=== PATIENT | male | born 1960 | race Caucasian/White ===

== ENCOUNTER 2016-09-13 17:22 | Inpatient (IN) | payer SELFPAY ==
[~2016-09-13] VITALS: Ht 172.7 cm; Wt 88.0 kg
--- NOTE | ~2016-09-13 | CON ---
[place], [place] REPORT OF CONSULTATION NAME[id number] UNIT #: [id number] ROOM: [facility] DOCTOR: JOZEF VASQUEZ DO BIRTHDATE: [birth year] DOS: 09/14/2016 REASON FOR CONSULTATION: Acute kidney injury and hyperkalemia. HISTORY OF PRESENT ILLNESS: The patient is a pleasant 56-year-old male with prior history of hypertension, gastric ulcers, sent to this institution yesterday from his PCP's office after an EKG performed revealed a right bundle branch block. He had been feeling weak as well as lightheaded for several days and this was the reason for his visit to his PCP. In the Emergency Room, he was noted to be hyperkalemic with potassium initially reported at 6.4 with a recheck value of 7.0; of note, neither the specimen was hemolyzed. His electrolytes were otherwise unremarkable. He was found to be in acute kidney injury as well as a creatinine of 2.20 with a BUN of 92 and on recheck, the BUN and creatinine were 91 and 2.06 respectively. White count was normal at 8.2 with hemoglobin of 14.5. He was aggressively treated in the Emergency Room with an amp of D50 and 2 units of IV regular insulin, also given Lasix in the Emergency Room as well and calcium gluconate and ordered 15 grams of Kayexalate. Additionally, IV fluids were administered 1 liter and he was given an albuterol treatment. He was then admitted to the ICU where additional 30 grams of Kayexalate was administered approximately 1 hour later. He was placed on maintenance IV fluids in the form of normal saline 125 mL an hour. I was then contacted by the staff in the ICU. Repeat labs were ordered. His potassium had subsequently improved to 6.4. His creatinine improved to 1.81. He was given additional dose of D50 and insulin IV. Otherwise, no additional orders were given to the ICU staff and as of this morning, his potassium has improved to 5.6. His creatinine has improved to 1.41. On recheck this morning, his chemistries are all otherwise unremarkable. Repeat hemoglobin and hematocrit from today revealed values of 13.5 and 39.1 respectively with a normal white count of 7.6. He did have urine studies obtained last evening as well after he received IV Lasix. He showed a specific gravity of less than 1.005. UA was otherwise unremarkable with urine chemistry showing a sodium of 118, creatinine of 21.7, and urea nitrogen of 334 for a fraction excretion of sodium that was greater than 1 and fractional excretion of urea that was equivocal at 36%. Renal ultrasound has been ordered, results of which are still pending. He had been on a longstanding and stable outpatient dose of lisinopril 20 mg daily. This was placed on hold upon admission. He notes since being admitted, he is feeling considerably better. 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 He states that he worked at his new job for only 3 days, Tuesday through Tuesday and subsequently quit as the labor was very intense and he was sweating profusely and he was feeling extremely poorly and was eating very poorly while performing his new job. He states, he also noted that he was urinating less frequently, typically only once a day. He then took a new job 2 days prior to admission on Tuesday, 09/10 while the labor was not as heavy as his previous job, he states that he still sweat quite profusely and while he began urinating more normally following the discontinuation of his first job, his appetite remained poor. He was still feeling quite weak and lightheaded. He states he ate a number of bananas on Tuesday thinking that his potassium may be low and that is why he was feeling poorly in hopes that this will help him feel better. Unfortunately, did not. Other than the poor appetite, he denied any other GI complaints leading up to this admission and states that he began [place], [place] REPORT OF CONSULTATION NAME: LORENAERYNJOSIE UNIT #: [id number] ROOM: [facility] DOCTOR: JOZEF VASQUEZ DO BIRTHDATE: [birth year] voiding what he considered to be in a normal fashion for himself as already described beginning on or Tuesday. He specifically denies any symptoms of colic or passage of calculi, hematuria or froth in his urine. He denies any abdominal pain or distention. He has not been experiencing any orthopnea, PND, dyspnea, or edema, cough, hemoptysis or any skin rashes. He denies use of NSAIDs and lisinopril. He has not been exposed to any other potential nephrotoxic agents. He has been afebrile and hemodynamically stable since being admitted. He is unaware of any preceding history of kidney disease. Unfortunately, we only have labs available through [facility] for this admission. States he does get lab work done routinely through his PCP's office, the most recent perhaps 6 months ago, has not been unaware of any issues with his kidneys or his potassium in the past. As potassium supplement and does not use a substitute either. PAST MEDICAL HISTORY: See above. ALLERGIES: No known drug allergies. CURRENT MEDICATIONS: Prilosec 20 mg p.o. every day, normal saline IV 125 mL an hour. SOCIAL HISTORY: He resides at home. FAMILY HISTORY: Noncontributory. REVIEW OF SYSTEMS: See HPI. Full 10 systems performed, and otherwise unremarkable. PHYSICAL EXAMINATION: VITAL SIGNS: Blood pressure is 104/68, pulse is 71, respirations 18, temperature is 97.9 degrees Fahrenheit. GENERAL APPEARANCE: A well-appearing male, awake, alert and oriented x 3, currently in no apparent distress. HEENT: Head is normocephalic. Eyes, conjunctivae pink. Oral mucous pink and moist. Upper and lower full dentures are noted. NECK: There is no carotid bruit, thyromegaly, adenopathy or JVD appreciated. LUNGS: Clear to auscultation and percussion. HEART: Regular, without S4, S3 gallop, rub, murmur or heave noted. ABDOMEN: Soft, positive bowel sounds x 4, nontender, without CVA tenderness noted. No rebound, guarding or rigidity noted. No abdominal or flank bruits appreciated. NEUROLOGIC: Examination is grossly nonfocal. EXTREMITIES: There is no clubbing or cyanosis. There is no edema noted. Pulses are +2 bilateral as well as dorsalis pedis. SKIN: Warm, dry without rash, ulcers, lesions or petechiae appreciated. LABORATORY DATA: Labs from today, sodium is 141, potassium 5.6, chloride 108, CO2 27, BUN 62, creatinine 1.41, glucose is 88, calcium is 8.5, mag is 1.6, phosphorus 2.2. Total cholesterol is 180. WBCs are 10.6, hemoglobin 13.5, hematocrit 39.1, platelets are 245,000. Renal ultrasound is pending. [place], [place] REPORT OF CONSULTATION NAME: JOSIE FLORES UNIT #: [id number] ROOM: [facility] DOCTOR: JOZEF VASQUEZ DO BIRTHDATE: [birth year] ASSESSMENT AND RECOMMENDATIONS: 1. Acute kidney injury. History is noted. Suspect this is due to volume depletion and exacerbated by use of lisinopril. 2. Hyperkalemia secondary to acute kidney injury and use of lisinopril. This is resolving with IV fluids. 3. Hypertension. Blood pressure is currently low. He is off of his antihypertensive medications. He is also pending renal ultrasound. I agree with current management including current intravenous fluids, follow intake and output. Monitor renal function and electrolytes closely. Thank you for allowing us to participate in the care of the patient. JOZEF VASQUEZ DO CM:CONSTR:REPORT OF CONSULTATION 1225 09/14/16 1539 interface
--- NOTE | ~2016-09-13 | PR ---
[place], [place] PROGRESS NOTE NAME: [id number] UNIT #: [id number] ROOM: 406 DOCTOR: JOZEF VASQUEZ DO BIRTHDATE: [birth year] DOS: 09/15/2016 SUBJECTIVE: The patient states he is feeling quite well today. He has been able to keep all his meals down and is taking in solids quite well. Denies any nausea, vomiting or diarrhea. Strength has improved. He is voiding well. Denies any dyspnea. PHYSICAL EXAMINATION: VITAL SIGNS: Blood pressure 132/78, pulse is 79, respiration 18, temperature is ____ degrees Fahrenheit. GENERAL: A well-appearing male, awake, alert, in no apparent distress. LUNGS: Clear to auscultation and percussion. HEART: Regular, without S4, S3 gallop, rub, murmur or heave noted. ABDOMEN: Soft, positive bowel sounds x 4. EXTREMITIES: No clubbing, cyanosis and no edema noted. LABORATORY DATA: today, sodium is 141, potassium is 5.3, chloride 110, CO2 of 26, BUN ____, creatinine 0.4, glucose 101, calcium is 8.7. WBC is 9.0, hemoglobin 13.0, hematocrit 38.8, platelets are 217,000. A renal ultrasound from September 14 shows symmetric kidneys, right measuring 10.6, left measuring 11.1 cm in size without hydronephrosis, masses appreciated. ASSESSMENT: 1. Acute kidney injury. This has resolved, was presumably due to volume depletion. 2. Hyperkalemia. This has resolved as well. 3. Hypertension. Blood pressure is satisfactorily controlled. RECOMMENDATIONS: Discontinue IV fluids. The patient is anxious for discharge. He may be safe for discharge to home from my perspective. JOZEF VASQUEZ DO CM:PNVAISHNAVI [id number] JOZEF VASQUEZ DO 09/15/16 1637 interface
[~2016-09-13 17:22] MED LIST: PRILOSEC20 M1 PO
[2016-09-13 17:45] VITALS: BP 132/93
[2016-09-13 18:11] LABS: BASO # 0.1 10*3/uL (0.0-0.1); EOS # 0.2 10*3/uL (0.0-0.4); EOS % 2.2 % (1.0-4.0); HEMATOCRIT 42.6 % (42.0-52.0); HEMOGLOBIN 14.5 g/dl (14.0-18.0); LYMPH # 2.3 10*3/uL (1.3-4.4); LYMPH % 26.6 % (27.0-41.0); MEAN CELL VOLUME 88.6 fl (80.0-94.0); MEAN CORPUSCULAR HGB 30.1 pg (27.0-31.0); MEAN PLATELET VOLUME 9.9 fl (9.6-12.3); MONO % 11.5 % (3.0-9.0); NEUT # 5.1 10*3/uL (2.3-7.9); NEUT % 58.4 % (47.0-73.0); PLATELET COUNT AUTOMATED 278 10*3/uL (130-400); RED BLOOD COUNT 4.81 10*6/uL (4.50-5.90); RED CELL DISTRI WIDTH 11.1 % (0-14.5); WHITE BLOOD COUNT 8.7 10*3/uL (4.8-10.8)
[2016-09-13 18:19] LABS: PROTHROMBIN TIME 10.3 SECONDS (9.0-12.4)
[2016-09-13 18:27] LABS: ALBUMIN 4.3 gm/dl (3.1-4.5); ALKALINE PHOSPHATASE 102 U/L (45-117); BILIRUBIN, TOTAL 0.3 mg/dl (0.2-1.0); BUN 92 mg/dl (7-24); CARBON DIOXIDE 25 mmol/L (21-32); CHLORIDE 108 mmol/L (98-107); EST GLOM FILT AFRICAN AMERICAN 38 ml/min; GLUCOSE 88 mg/dL (65-99); MAGNESIUM 1.9 mg/dL (1.5-2.1); SGOT/AST 16 IU/L (3-35); SGPT/ALT 29 U/L (12-78); SODIUM 138 mmol/L (136-145); TOTAL PROTEIN 7.9 gm/dL (6.4-8.2)
[2016-09-13 18:29] LABS: CKMB 1.2 ng/ml (0.5-3.6)
[2016-09-13 18:32] LABS: TROPONIN I < 0.015 ng/ml (<0.045)
[2016-09-13 18:34] LABS: POTASSIUM 6.4 mmol/L (3.5-5.1)
[2016-09-13 18:41] VITALS: BP 109/66
[2016-09-13 19:03] VITALS: BP 113/66
[2016-09-13 20:11] VITALS: BP 126/84
[2016-09-13 20:30] VITALS: BP 117/80
[2016-09-13] MEDS ORDERED: LISINOPRIL20 MG PO (20:43)
[2016-09-13 21:35] LABS: BILIRUBIN NEGATIVE (NEGATIVE); BLOOD NEGATIVE (NEGATIVE); CLARITY CLEAR (CLEAR); COLOR YELLOW (YELLOW); GLUCOSE NEGATIVE (NEGATIVE); KETONE NEGATIVE (NEGATIVE); LEUKO ESTERASE NEGATIVE (NEGATIVE); NITRITE NEGATIVE (NEGATIVE); PH 5.5 (5.0-9.0); PROTEIN NEGATIVE (NEGATIVE); SPECIFIC GRAVITY <= 1.005 (1.005-1.030); UROBILINOGEN 0.2 E.U./dl (0.2-1.0)
[2016-09-13 21:41] LABS: HYALINE CAST 0-2; RBC 0-2 rbc/hpf (0-2); URINE REFLEX COMMENT NO (NO); WBC 0-2 wbc/hpf (0-5)
[2016-09-13 23:25] LABS: BUN 77 mg/dl (7-24); CARBON DIOXIDE 29 mmol/L (21-32); CHLORIDE 106 mmol/L (98-107); EST GLOM FILT AFRICAN AMERICAN 47 ml/min; GLUCOSE 112 mg/dL (65-99); SODIUM 139 mmol/L (136-145)
[2016-09-13 23:26] LABS: TROPONIN I < 0.015 ng/ml (<0.045)
[2016-09-13 23:27] LABS: POTASSIUM 6.4 mmol/L (3.5-5.1)
[2016-09-14] VITALS: BP 114/69
[2016-09-14 04:00] VITALS: BP 102/56
[2016-09-14 06:01] LABS: BASO # 0.1 10*3/uL (0.0-0.1); BASO % 0.8 % (0.0-1.0); EOS # 0.2 10*3/uL (0.0-0.4); EOS % 2.6 % (1.0-4.0); HEMATOCRIT 39.1 % (42.0-52.0); HEMOGLOBIN 13.5 g/dl (14.0-18.0); LYMPH # 2.1 10*3/uL (1.3-4.4); LYMPH % 27.2 % (27.0-41.0); MEAN CELL VOLUME 89.5 fl (80.0-94.0); MEAN CORPUSCULAR HGB 30.9 pg (27.0-31.0); MEAN CORPUSCULAR HGB CONC 34.5 g/dl (33.0-37.0); MEAN PLATELET VOLUME 9.9 fl (9.6-12.3); MONO # 0.9 10*3/uL (0.1-1.0); MONO % 12.1 % (3.0-9.0); NEUT # 4.4 10*3/uL (2.3-7.9); PLATELET COUNT AUTOMATED 245 10*3/uL (130-400); RED BLOOD COUNT 4.37 10*6/uL (4.50-5.90); RED CELL DISTRI WIDTH 11.2 % (0-14.5); WHITE BLOOD COUNT 7.6 10*3/uL (4.8-10.8)
[2016-09-14 06:23] LABS: PROTHROMBIN TIME 10.9 SECONDS (9.0-12.4)
[2016-09-14 06:28] LABS: CARBON DIOXIDE 27 mmol/L (21-32); CHLORIDE 108 mmol/L (98-107); CHOLESTEROL 180 mg/dL (<200); EST GLOM FILT AFRICAN AMERICAN > 60 ml/min; FREE T4 1.11 ng/dl (0.76-1.46); GLUCOSE 88 mg/dL (65-99); HDL CHOLESTEROL 29 mg/dl (40-60); LDL CHOLESTEROL 113 mg/dL (9-159); MAGNESIUM 1.6 mg/dL (1.5-2.1); PHOSPHOROUS 2.2 mg/dL (2.5-4.9); POTASSIUM 5.6 mmol/L (3.5-5.1); SODIUM 141 mmol/L (136-145); TRIGLYCERIDES 192 mg/dl (<150); VLDL CHOLESTEROL 38 mg/dL (6-40)
[2016-09-14 06:42] LABS: BUN 62 mg/dl (7-24)
[2016-09-14 07:39] LABS: HEMOGLOBIN A1c 5.8 % (4.8-5.6)
[2016-09-14 08:00] VITALS: BP 104/68
[2016-09-14 08:30] LABS: VITAMIN D, 25-HYDROXY 31.7 ng/mL (30-100)
[2016-09-14 08:31] LABS: FOLIC ACID 14.79 ng/mL (>5.38)
[2016-09-14 12:00] VITALS: BP 97/70
[2016-09-14 16:00] VITALS: BP 99/65
[2016-09-14 20:00] VITALS: BP 143/76
[2016-09-15] VITALS: BP 136/72
[2016-09-15 04:47] LABS: BASO # 0.1 10*3/uL (0.0-0.1); BASO % 0.8 % (0.0-1.0); EOS # 0.2 10*3/uL (0.0-0.4); EOS % 2.5 % (1.0-4.0); HEMATOCRIT 38.8 % (42.0-52.0); LYMPH # 2.1 10*3/uL (1.3-4.4); LYMPH % 23.4 % (27.0-41.0); MEAN CELL VOLUME 89.6 fl (80.0-94.0); MEAN CORPUSCULAR HGB CONC 33.5 g/dl (33.0-37.0); MEAN PLATELET VOLUME 10.3 fl (9.6-12.3); MONO # 0.9 10*3/uL (0.1-1.0); MONO % 10.3 % (3.0-9.0); NEUT # 5.6 10*3/uL (2.3-7.9); NEUT % 62.8 % (47.0-73.0); PLATELET COUNT AUTOMATED 217 10*3/uL (130-400); RED BLOOD COUNT 4.33 10*6/uL (4.50-5.90)
[2016-09-15 05:12] LABS: ALBUMIN 3.3 gm/dl (3.1-4.5); CARBON DIOXIDE 26 mmol/L (21-32); CHLORIDE 110 mmol/L (98-107); EST GLOM FILT AFRICAN AMERICAN > 60 ml/min; GLUCOSE 92 mg/dL (65-99); SODIUM 141 mmol/L (136-145)
[2016-09-15 05:15] LABS: BUN 32 mg/dl (7-24)
[2016-09-15 05:17] LABS: POTASSIUM 6.4 mmol/L (3.5-5.1)
[2016-09-15 07:13] LABS: BUN 32 mg/dl (7-24); CARBON DIOXIDE 26 mmol/L (21-32); CHLORIDE 110 mmol/L (98-107); EST GLOM FILT AFRICAN AMERICAN > 60 ml/min; GLUCOSE 101 mg/dL (65-99); SODIUM 141 mmol/L (136-145)
[2016-09-15 07:27] LABS: POTASSIUM 5.3 mmol/L (3.5-5.1)
[2016-09-15 08:00] VITALS: BP 132/78
== END 2016-09-15 11:45 | disposition home or self-care (01) | DRG 640 ==
LOC: ED 17:22 → EDHOLD 19:36 → ICCU 19:36 → 4E 09-14 17:44
PROVIDERS: Emergency Medicine; Internal Medicine; Internal Medicine Nephrology; Specialist; Student in an Organized Health Care Education/Training Program
DX: E87.5 Hyperkalemia (principal); N17.0 Acute kidney failure with tubular necrosis; I10 Essential (primary) hypertension; K21.9 Gastro-esophageal reflux disease without esophagitis; E66.3 Overweight; F12.90 Cannabis use, unspecified, uncomplicated; I95.0 Idiopathic hypotension; R79.89 Other specified abnormal findings of blood chemistry; E78.5 Hyperlipidemia, unspecified; Z68.29 Body mass index [BMI] 29.0-29.9, adult; Z79.899 Other long term (current) drug therapy; Z82.5 Family history of asthma and other chronic lower respiratory diseases; Z90.49 Acquired absence of other specified parts of digestive tract; Z87.891 Personal history of nicotine dependence; Z72.89 Other problems related to lifestyle; Z82.49 Family history of ischemic heart disease and other diseases of the circulatory system; Z80.6 Family history of leukemia

== ENCOUNTER → 2016-09-17 | Outpatient (CLI) | payer SELFPAY ==
[~2016-09-17] MED LIST changes: +LISINOPRIL20 MG PO
[2016-09-17 08:52] LABS: BUN 24 mg/dl (7-24); CARBON DIOXIDE 24 mmol/L (21-32); CHLORIDE 105 mmol/L (98-107); EST GLOM FILT AFRICAN AMERICAN > 60 ml/min; GLUCOSE 99 mg/dL (65-99); POTASSIUM 4.9 mmol/L (3.5-5.1); SODIUM 137 mmol/L (136-145)
== END | disposition home or self-care (01) ==
LOC: LAB 07:59
PROVIDERS: Internal Medicine Hospice and Palliative Medicine
DX: E87.5 Hyperkalemia (principal); N17.0 Acute kidney failure with tubular necrosis

== ENCOUNTER → 2020-12-02 | Outpatient (CLI) | payer SELFPAY | END | disposition home or self-care (01) | LOC: RESCLI 12:50 | PROVIDERS: ATTEND Internal Medicine | DX: Z23 Encounter for immunization (principal); I10 Essential (primary) hypertension; E78.5 Hyperlipidemia, unspecified; K25.9 Gastric ulcer, unspecified as acute or chronic, without hemorrhage or perforation; J45.909 Unspecified asthma, uncomplicated; J44.9 Chronic obstructive pulmonary disease, unspecified; F10.20 Alcohol dependence, uncomplicated; F12.90 Cannabis use, unspecified, uncomplicated; E83.42 Hypomagnesemia; Z86.16 Personal history of COVID-19; Z88.8 Allergy status to other drugs, medicaments and biological substances; Z87.891 Personal history of nicotine dependence; Z79.899 Other long term (current) drug therapy ==

== ENCOUNTER → 2020-12-25 | Outpatient (CLI) | payer SELFPAY ==
[2020-12-25 08:41] LABS: BASO # 0.1 10*3/uL (0.0-0.1); BASO % 0.6 % (0.0-1.0); EOS # 0.2 10*3/uL (0.0-0.4); EOS % 2.9 % (1.0-4.0); HEMATOCRIT 45.1 % (42.0-52.0); LYMPH # 1.9 10*3/uL (1.3-4.4); LYMPH % 23.4 % (27.0-41.0); MEAN CELL VOLUME 89.1 fl (80.0-94.0); MEAN CORPUSCULAR HGB 30.6 pg (27.0-31.0); MEAN CORPUSCULAR HGB CONC 34.4 g/dl (33.0-37.0); MEAN PLATELET VOLUME 10.5 fl (9.6-12.3); MONO # 0.9 10*3/uL (0.1-1.0); MONO % 10.5 % (3.0-9.0); NEUT # 5.1 10*3/uL (2.3-7.9); NEUT % 61.8 % (47.0-73.0); PLATELET COUNT AUTOMATED 265 10*3/uL (130-400); RED BLOOD COUNT 5.06 10*6/uL (4.50-5.90); RED CELL DISTRI WIDTH 11.7 % (0-14.5); WHITE BLOOD COUNT 8.3 10*3/uL (4.8-10.8)
[2020-12-25 08:57] LABS: ALBUMIN 3.9 gm/dl (3.1-4.5); BUN 21 mg/dl (7-24); CHLORIDE 104 mmol/L (98-107); CHOLESTEROL 150 mg/dL (<200); CREATININE 1.04 mg/dL (0.70-1.30); POTASSIUM 4.2 mmol/L (3.5-5.1); SGOT/AST 26 IU/L (3-35); SGPT/ALT 54 U/L (12-78); SODIUM 139 mmol/L (136-145); TOTAL PROTEIN 7.5 gm/dL (6.4-8.2); TRIGLYCERIDES 147 mg/dl (<150)
[2020-12-25 09:03] LABS: ALKALINE PHOSPHATASE 108 U/L (45-117); LDL CHOLESTEROL 81 mg/dL (9-159)
== END | disposition home or self-care (01) ==
LOC: LAB 07:56
PROVIDERS: Internal Medicine; ATTEND Internal Medicine
DX: I10 Essential (primary) hypertension (principal); E78.5 Hyperlipidemia, unspecified

== ENCOUNTER → 2021-02-27 | Outpatient (CLI) | payer SELFPAY | END | disposition home or self-care (01) | LOC: RESCLI 03:33 | PROVIDERS: ATTEND Internal Medicine | DX: J45.909 Unspecified asthma, uncomplicated (principal); K25.9 Gastric ulcer, unspecified as acute or chronic, without hemorrhage or perforation; E78.5 Hyperlipidemia, unspecified; I10 Essential (primary) hypertension; M79.645 Pain in left finger(s); E55.9 Vitamin D deficiency, unspecified; F10.20 Alcohol dependence, uncomplicated; F12.90 Cannabis use, unspecified, uncomplicated; Z88.8 Allergy status to other drugs, medicaments and biological substances; Z87.891 Personal history of nicotine dependence; Z79.899 Other long term (current) drug therapy ==

== ENCOUNTER → 2022-04-08 | Outpatient (CLI) | payer BC | END | disposition home or self-care (01) | LOC: RESCLI 00:48 | PROVIDERS: ATTEND Internal Medicine | DX: M79.645 Pain in left finger(s) (principal); E78.5 Hyperlipidemia, unspecified; I10 Essential (primary) hypertension; Z88.8 Allergy status to other drugs, medicaments and biological substances; Z82.49 Family history of ischemic heart disease and other diseases of the circulatory system; Z86.16 Personal history of COVID-19; Z79.899 Other long term (current) drug therapy ==

== ENCOUNTER → 2022-05-07 | Outpatient (CLI) | payer BC | END | disposition home or self-care (01) | LOC: ORTHO 00:30 | PROVIDERS: ATTEND Orthopaedic Surgery | DX: M79.89 Other specified soft tissue disorders (principal); M79.642 Pain in left hand ==

== ENCOUNTER → 2022-09-27 | Outpatient (CLI) | payer BC | END | disposition home or self-care (01) | LOC: RESCLI 01:25 | PROVIDERS: ATTEND Internal Medicine | DX: J45.909 Unspecified asthma, uncomplicated (principal); K25.9 Gastric ulcer, unspecified as acute or chronic, without hemorrhage or perforation; E78.5 Hyperlipidemia, unspecified; I10 Essential (primary) hypertension; M18.12 Unilateral primary osteoarthritis of first carpometacarpal joint, left hand; Z12.2 Encounter for screening for malignant neoplasm of respiratory organs; Z98.890 Other specified postprocedural states; Z88.8 Allergy status to other drugs, medicaments and biological substances; Z87.891 Personal history of nicotine dependence; Z79.899 Other long term (current) drug therapy ==

== ENCOUNTER → 2022-09-28 | Outpatient (CLI) | payer BC ==
[2022-09-28 08:05] LABS: BASO # 0.1 10*3/uL (0.0-0.1); BASO % 1.3 % (0.0-1.0); EOS # 0.4 10*3/uL (0.0-0.4); EOS % 4.4 % (1.0-4.0); LYMPH # 1.6 10*3/uL (1.3-4.4); LYMPH % 17.2 % (27.0-41.0); MEAN CELL VOLUME 90.9 fl (80.0-94.0); MEAN PLATELET VOLUME 9.7 fl (9.6-12.3); MONO # 0.8 10*3/uL (0.1-1.0); MONO % 8.9 % (3.0-9.0); NEUT # 6.3 10*3/uL (2.3-7.9); NEUT % 67.6 % (47.0-73.0); PLATELET COUNT AUTOMATED 253 10*3/uL (130-400); RED BLOOD COUNT 4.62 10*6/uL (4.50-5.90); RED CELL DISTRI WIDTH 11.5 % (0-14.5); WHITE BLOOD COUNT 9.3 10*3/uL (4.8-10.8)
[2022-09-28 08:56] LABS: ALKALINE PHOSPHATASE 100 U/L (46-116); BUN 12 mg/dl (9-23); CHLORIDE 108 mmol/L (98-107); CHOLESTEROL 146 mg/dL (<200); LDL CHOLESTEROL 69 mg/dL (9-159); POTASSIUM 4.2 mmol/L (3.4-5.1); SGPT/ALT 24 U/L (10-49); TOTAL PROTEIN 6.6 gm/dL (6.0-8.0); TRIGLYCERIDES 170 mg/dl (<150)
== END | disposition home or self-care (01) ==
LOC: LAB 07:47
PROVIDERS: Student in an Organized Health Care Education/Training Program; ATTEND Student in an Organized Health Care Education/Training Program
DX: I10 Essential (primary) hypertension (principal); E78.5 Hyperlipidemia, unspecified

== ENCOUNTER → 2022-10-29 | Outpatient (CLI) | payer BC | END | disposition home or self-care (01) | LOC: RAD 10:03 | PROVIDERS: ATTEND Chiropractor | DX: M47.817 Spondylosis without myelopathy or radiculopathy, lumbosacral region (principal); M47.812 Spondylosis without myelopathy or radiculopathy, cervical region ==

== ENCOUNTER → 2022-11-24 | Outpatient (CLI) | payer BC | END | disposition home or self-care (01) | LOC: RESCLI 07:49 | PROVIDERS: ATTEND Student in an Organized Health Care Education/Training Program | DX: I10 Essential (primary) hypertension (principal); E78.5 Hyperlipidemia, unspecified; K25.9 Gastric ulcer, unspecified as acute or chronic, without hemorrhage or perforation; M79.645 Pain in left finger(s); E55.9 Vitamin D deficiency, unspecified; M18.12 Unilateral primary osteoarthritis of first carpometacarpal joint, left hand; M79.642 Pain in left hand; M54.9 Dorsalgia, unspecified; Z79.899 Other long term (current) drug therapy; K21.9 Gastro-esophageal reflux disease without esophagitis; Z87.891 Personal history of nicotine dependence ==

== ENCOUNTER → 2023-12-28 | Outpatient (CLI) | payer OTHER | END | disposition home or self-care (01) | LOC: RESCLI 07:34 | PROVIDERS: ATTEND Internal Medicine | DX: I10 Essential (primary) hypertension (principal); E78.5 Hyperlipidemia, unspecified; K25.9 Gastric ulcer, unspecified as acute or chronic, without hemorrhage or perforation; J45.909 Unspecified asthma, uncomplicated; E55.9 Vitamin D deficiency, unspecified; M54.9 Dorsalgia, unspecified; Z79.899 Other long term (current) drug therapy; Z88.8 Allergy status to other drugs, medicaments and biological substances; Z98.890 Other specified postprocedural states ==

== ENCOUNTER → 2024-06-20 | Outpatient (CLI) | payer OTHER | END | disposition home or self-care (01) | LOC: RESCLI 01:16 | PROVIDERS: ATTEND Internal Medicine | DX: I10 Essential (primary) hypertension (principal); E78.5 Hyperlipidemia, unspecified; K25.9 Gastric ulcer, unspecified as acute or chronic, without hemorrhage or perforation; J45.909 Unspecified asthma, uncomplicated; E55.9 Vitamin D deficiency, unspecified; M10.9 Gout, unspecified; M54.9 Dorsalgia, unspecified ==

== ENCOUNTER 2024-08-21 18:49 | Inpatient (IN) | payer OTHER ==
[~2024-08-21] VITALS: Ht 172.7 cm; Wt 94.9 kg
[2024-08-21 19:08] VITALS: BP 188/109
[2024-08-21 19:25] LABS: MEAN CELL VOLUME 88.2 fl (80.0-94.0); MEAN CORPUSCULAR HGB 30.5 pg (27.0-31.0); MEAN PLATELET VOLUME 9.9 fl (9.6-12.3); NUCLEATED RED BLOOD CELL 0.0 % (0.0-0.0); NUCLEATED RED BLOOD CELL 0.0 10*3/uL (0.0-0.0); PLATELET COUNT AUTOMATED 280 10*3/uL (130-400); RED CELL DISTRI WIDTH 11.3 % (0-14.5)
[2024-08-21 19:28] LABS: MANUAL DIFF REFLEX YES
[2024-08-21 19:43] LABS: BUN 16 mg/dl (9-23); SGPT/ALT 30 U/L (5-49)
[2024-08-21 19:59] LABS: PLATELET SUFFICIENCY NORMAL (NORMAL)
[2024-08-21] MEDS ORDERED: SODIUM CHLORIDE 0.9% 1,000 ML IV ONE ×2 (20:00→21:25)
[2024-08-21] MEDS ORDERED: Ondansetron Hydrochloride 4 MG/2 ML VIAL IV ONE (20:00)
[2024-08-21] MEDS ORDERED: BISACODYL 10 MG SUPP R PRN (22:25)
[2024-08-21] MEDS ORDERED: ACETAMINOPHEN 325 MG TAB PO PRN (22:25)
[2024-08-21] MEDS ORDERED: TEMAZEPAM 15 MG CAP PO PRN (22:25)
[2024-08-21] MEDS ORDERED: Ondansetron Hydrochloride 4 MG/2 ML VIAL IV PRN (22:25)
[2024-08-21] MEDS ORDERED: ACETAMINOPHEN 650 MG SUPP R PRN (22:25)
[2024-08-21] MEDS ORDERED: BISACODYL 5 MG TAB PO PRN (22:25)
[2024-08-21 22:28] VITALS: BP 147/87
[2024-08-21 22:39] VITALS: BP 153/84
[2024-08-22] MEDS ORDERED: SODIUM CHLORIDE 0.9% 1,000 ML IV ONE (05:45)
[2024-08-22 06:28] LABS: ACT PARTIAL THROMBO TIME 28.2 SECONDS (20.0-32.1)
[2024-08-22 06:34] LABS: BASO # 0.1 10*3/uL (0.0-0.1); BASO % 0.8 % (0.0-1.0); EOS # 0.1 10*3/uL (0.0-0.4); EOS % 0.9 % (1.0-4.0); MEAN CELL VOLUME 90.3 fl (80.0-94.0); MEAN CORPUSCULAR HGB 30.9 pg (27.0-31.0); MEAN PLATELET VOLUME 10.0 fl (9.6-12.3); MONO # 1.2 10*3/uL (0.1-1.0); MONO % 10.0 % (3.0-9.0); NEUT # 7.8 10*3/uL (2.3-7.9); NEUT % 66.6 % (47.0-73.0); NUCLEATED RED BLOOD CELL 0.0 % (0.0-0.0); NUCLEATED RED BLOOD CELL 0.0 10*3/uL (0.0-0.0); PLATELET COUNT AUTOMATED 231 10*3/uL (130-400); RED CELL DISTRI WIDTH 11.4 % (0-14.5)
[2024-08-22 07:23] LABS: BUN 12 mg/dl (9-23); LDL CHOLESTEROL 89 mg/dL (9-159); SGPT/ALT 26 U/L (5-49)
[2024-08-22 08:00] VITALS: BP 147/78
[2024-08-22] MEDS ORDERED: ATORVASTATIN CA10 M1 PO (08:21)
[2024-08-22] MEDS ORDERED: METOPROLOL SUCC25 M2 PO (08:21)
[2024-08-22] MEDS ORDERED: COLCHICINE0.6 M1 PO (08:22)
[2024-08-22 12:00] VITALS: BP 125/68
[2024-08-22 16:00] VITALS: BP 129/66
[2024-08-22 20:00] VITALS: BP 151/70
[2024-08-23] VITALS (10 sets, daily range): BP systolic 141–167; BP diastolic 75–93
[2024-08-23] MEDS ORDERED: Albuterol Sulf/Ipratropium 3 ML VIAL NEB ONE ×2 (07:30→07:46)
[2024-08-23] MEDS ORDERED: Lactated Ringer's Solution 1,000 ML IV ONE (07:32)
[2024-08-23] MEDS ORDERED: SODIUM CHLORIDE 0.9% 100 ML IV ONE (07:32)
[2024-08-23] MEDS ORDERED: ACETAMINOPHEN 100 ML IV ONE (07:33)
[2024-08-23] MEDS ORDERED: Acetaminophen/Oxycodone 5 MG/325 MG TABLET PO PRN (12:30)
[2024-08-23] MEDS ORDERED: Dexamethasone Sodium Phospha 4 MG/ML VIAL IV ONE (13:29)
[2024-08-23] MEDS ORDERED: ROCURONIUM BROMIDE 50 MG/5 ML SYRINGE IV ONE (13:29)
[2024-08-23] MEDS ORDERED: PROPOFOL 200 MG/20 ML VIAL IV ONE (13:29)
[2024-08-23] MEDS ORDERED: Ondansetron Hydrochloride 4 MG/2 ML VIAL IV ONE (13:29)
[2024-08-23] MEDS ORDERED: Lidocaine Hydrochloride 5 ML VIAL IV ONE (13:29)
[2024-08-23] MEDS ORDERED: SUGAMMADEX SODIUM 200 MG/2 ML VIAL IV ONE (13:29)
[2024-08-23] MEDS ORDERED: SEVOFLURANE 250 ML BOT INH ONE (13:29)
[2024-08-23] MEDS ORDERED: ATORVASTATIN CALCIUM 10 MG TAB PO SCH (18:00)
[2024-08-23] MEDS ORDERED: COLCHICINE 0.6 MG TAB PO SCH (22:00)
[2024-08-23] MEDS ORDERED: METOPROLOL SUCCINATE XR 25 MG TAB PO SCH (22:00)
[2024-08-24] VITALS: BP 148/84
[2024-08-24 06:47] LABS: MEAN CELL VOLUME 90.2 fl (80.0-94.0); MEAN CORPUSCULAR HGB 31.6 pg (27.0-31.0); MEAN PLATELET VOLUME 10.5 fl (9.6-12.3); NUCLEATED RED BLOOD CELL 0.0 % (0.0-0.0); NUCLEATED RED BLOOD CELL 0.0 10*3/uL (0.0-0.0); PLATELET COUNT AUTOMATED 267 10*3/uL (130-400); RED CELL DISTRI WIDTH 11.5 % (0-14.5)
[2024-08-24 06:51] LABS: MANUAL DIFF REFLEX YES
[2024-08-24 07:28] LABS: PLATELET SUFFICIENCY NORMAL (NORMAL)
[2024-08-24] MEDS ORDERED: OMEPRAZOLE 20 MG CAP PO SCH (07:30)
[2024-08-24 08:00] VITALS: BP 151/81
[2024-08-24 12:00] VITALS: BP 127/74
[2024-08-24 15:30] VITALS: BP 142/79
[2024-08-24] MEDS ORDERED: Albuterol Sulf/Ipratropium 3 ML VIAL NEB PRN (15:40)
[2024-08-24] MEDS ORDERED: LEVOFLOXACIN 150 ML IV SCH (16:00)
[2024-08-24 20:00] VITALS: BP 134/86
[2024-08-25] VITALS: BP 130/69
[2024-08-25 06:19] LABS: BUN 13 mg/dl (9-23)
[2024-08-25 06:32] LABS: MEAN CELL VOLUME 90.7 fl (80.0-94.0); MEAN CORPUSCULAR HGB 31.3 pg (27.0-31.0); MEAN PLATELET VOLUME 10.4 fl (9.6-12.3); NUCLEATED RED BLOOD CELL 0.0 % (0.0-0.0); NUCLEATED RED BLOOD CELL 0.0 10*3/uL (0.0-0.0); PLATELET COUNT AUTOMATED 231 10*3/uL (130-400); RED CELL DISTRI WIDTH 11.6 % (0-14.5)
[2024-08-25 06:33] LABS: MANUAL DIFF REFLEX YES
[2024-08-25 07:10] LABS: PLATELET SUFFICIENCY NORMAL (NORMAL)
[2024-08-25 08:00] VITALS: BP 120/72
[2024-08-25] MEDS ORDERED: OXYCODONE-ACET1 EAC3 PO (11:49)
[2024-08-25] MEDS ORDERED: LEVOFLOXACIN750 M2 PO (12:32)
== END 2024-08-25 12:25 | disposition home or self-care (01) | DRG 854 ==
LOC: ED 18:49 → 5E 21:51 → EDHOLD 21:51 → 5E 22:25
PROVIDERS: Internal Medicine; ADMIT Internal Medicine; ATTEND Internal Medicine
PROC: 0FT44ZZ Resection of Gallbladder, Percutaneous Endoscopic Approach (ICD-10-PCS; principal; 2024-08-23)
DX: A41.9 Sepsis, unspecified organism (principal); K81.0 Acute cholecystitis; I16.0 Hypertensive urgency; J98.4 Other disorders of lung; R50.82 Postprocedural fever; J45.909 Unspecified asthma, uncomplicated; I10 Essential (primary) hypertension; E78.5 Hyperlipidemia, unspecified; R73.9 Hyperglycemia, unspecified; K25.9 Gastric ulcer, unspecified as acute or chronic, without hemorrhage or perforation; M10.9 Gout, unspecified; Z79.899 Other long term (current) drug therapy; Z79.01 Long term (current) use of anticoagulants; Z87.891 Personal history of nicotine dependence; Z80.6 Family history of leukemia; Z82.49 Family history of ischemic heart disease and other diseases of the circulatory system; Z82.5 Family history of asthma and other chronic lower respiratory diseases

== ENCOUNTER → 2024-12-25 | Outpatient (CLI) | payer OTHER ==
[~2024-12-25] MED LIST changes: +ATORVASTATIN CA10 M1 PO; +COLCHICINE0.6 M1 PO; +LEVOFLOXACIN750 M2 PO; +METOPROLOL SUCC25 M2 PO; +OXYCODONE-ACET1 EAC3 PO
== END | disposition home or self-care (01) ==
LOC: RESCLI 02:34 → LAB 03:36
PROVIDERS: ATTEND Internal Medicine
DX: M18.0 Bilateral primary osteoarthritis of first carpometacarpal joints (principal); R05.9 Cough, unspecified; M79.641 Pain in right hand; M79.642 Pain in left hand